=== PATIENT | female | born 1995 | race Caucasian/White ===

== ENCOUNTER 2024-04-23 21:19 | Emergency (ER) | payer BC ==
[2024-04-23] MEDS ORDERED: Ketorolac Tromethamine 30 MG (1 mL) VIAL ONE (21:30)
[2024-04-23] MEDS ORDERED: Lidocaine 4% Patch ONE (21:40)
== END 2024-04-23 22:19 | disposition home or self-care (01) ==
LOC: CSHERS 21:19
DX: S46.011A Strain of muscle(s) and tendon(s) of the rotator cuff of right shoulder, initial encounter (principal); X50.0XXA Overexertion from strenuous movement or load, initial encounter; Z55.6 Problems related to health literacy
CPT/HCPCS: 96372; 99283; J1885